=== PATIENT | female | born 2000 | race Two or more races ===

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

== ENCOUNTER 2018-03-17 10:36 | Emergency (ER) | payer OTHER ==
[2018-03-17 11:01] VITALS: BP 127/72
--- NOTE | 2018-03-17 12:54 | UC ---
Monica Capone Tenzin, scribed for Jose Joy MD on 03/17/18 at 1058 . General HPI - HPI Summary HPI Summary: Pt is a 18 years old female presenting to the complaining of V/N/D since 11: 00 after eating sushi last night around 08:00. She complaints that her abdomen is sore and hurts a lot, she also feels lightheaded. Denies sore throat, fever, chills, coughs, dysuria, no blood in stools, no vaginal discharge or no pain in the back. No aggravating and alleviating factors were noted. LNMP: 2 days ago. Pt notes that she feels a little better than 4-5 hours ago at the today. Pt refused to take any medication for the nausea today at the . - History of Current Complaint Stated Complaint: VOMITING Time Seen by Provider: 03/17/18 10:49 Hx Obtained From: Patient Hx Last Menstrual Period: 1 MONTH AGO Onset/Duration: Lasting Hours - since last night at 11:00 Onset Severity: Mild Associated Signs & Symptoms: Positive: Abdominal Pain, Diarrhea, Nausea, Vomiting. Negative: Back Pain, Cough, Dysuria, Fever - Allergy/Home Medications Allergies/Adverse Reactions: Allergies Allergy/AdvReac Type Severity Reaction Status Date / Time No Known Allergies Allergy Verified 06/18/17 18:05 PMH/Surg Hx/FS Hx/Imm Hx - Additional Past Medical History Additional PMH: NEGATIVE: CVA, MD - Surgical History Surgical History: None Surgery Procedure, Year, and Place: wisdom teeth extraction - Family History Known Family History: Positive: None, Other - Pt denies relevant family Hx. - Social History Alcohol Use: None Substance Use Type: None Smoking Status (MU): Never Smoked Tobacco - Immunization History Vaccination Up to Date: Yes Review of Systems Constitutional: Negative Skin: Negative Eyes: Negative ENT: Negative Respiratory: Negative Cardiovascular: Negative Gastrointestinal: Abdominal Pain, Vomiting, Nausea, Other - Lightheaded Genitourinary: Negative Motor: Negative Neurovascular: Negative Musculoskeletal: Negative Neurological: Negative Psychological: Negative All Other Systems Reviewed And Are Negative: Yes - Comments Additional Review of Systems Comments: POSITIVE: N/V/D, lightheaded. EGATIVE: Fever, chills, HARDIN, dysuria, Physical Exam - Summary Physical Exam Summary: General: mildly ill appearing, mild pain distress Skin: warm, color reflects adequate perfusion, dry Head: normal Eyes: EOMI, SUE ENT: normal, mucous are moist Neck: supple, nontender Respiratory: CTA, breath sounds present Cardiovascular: RRR Abdomen: Mild tender upper abdomen, no lower abdomen tenderness. No CVA tenderness. Bowel: present, positive bowel movement Musculoskeletal: normal, strength/ROM intact Neurological: sensory/motor intact, A&O x3 Psychological: affect/mood appropriate Triage Information Reviewed: Yes Vital Signs: Initial Vital Signs Temp 98.4 F 03/17/18 10:49 Pulse 80 03/17/18 10:49 Resp 16 03/17/18 10:49 BP 127/72 03/17/18 10:49 Pulse Ox 100 03/17/18 10:49 Vital Signs Reviewed: Yes Course/Dx - Course Course Of Treatment: PATIENT DECLINED ZOFRAN. SHE PREFERS TO USE KAITLYNN ETC. SHE FEELS SHE IS IMPROVING. THE PAIN IS UPPER ABD AND INTERMITTENT. NO LOWER ABD PAIN/TENDERNESS. WE DICSUSSED SX OF APPENDICITIS AND THE NEED FOR RE EVAL IF WORSE. - Differential Dx - Multi-Symptom Provider Diagnoses: VOMITING AND DIARRHEA. DEHYDRATION Discharge - Sign-Out/Discharge Documenting (check all that apply): Discharge/Admit/Transfer - Discharge Plan Condition: Stable Disposition: HOME Patient Education Materials: Dehydration (ED), Acute Nausea and Vomiting (ED) Forms: *Work Release Referrals: Lacho Philip, SALES REPRESENTATIVE [employer] [Primary Care Provider] - Additional Instructions: FOLLOW UP WITH YOUR DOCTOR IF NOT COMPLETELY IMPROVED. GET RECHECKED FOR ANY WORSENING OF YOUR CONDITION; PAIN, FEVER, DEHYDRATION, YOU FEEL ILL OR QUESTIONS OR CONCERNS. - Billing Disposition and Condition Condition: STABLE Disposition: Home The documentation as recorded by the Monica villalpando Tenzin accurately reflects the service I personally performed and the decisions made by me, Jose Joy MD.
== END 2018-03-17 11:05 | disposition home or self-care (01) ==
LOC: UCEAST 10:36
DX: R11.2 Nausea with vomiting, unspecified (principal); R19.7 Diarrhea, unspecified
CPT/HCPCS: 99211; G0463